=== PATIENT | female | born 1995 | race Two or more races ===

== ENCOUNTER 2024-05-17 19:59 | Emergency (ER) | payer OTHER ==
[~2024-05-17] VITALS: Ht 170.2 cm; Wt 69.8 kg
--- NOTE | 2024-05-17 20:34 | ED.PDOC ---
GI ASSESSMENT HPI Comments 29 year old female presents to the ED with a chief complaint of abdominal pain onset today (05/17/24). Patient states she woke up today experiencing RLQ pain radiating to RT flank, RT low back as well as nausea/vomiting, chills, fatigue. Patient was seen at [facility], told to come to ED to rule out possible appendicitis or ovarian cysts. Patient noticed hematuria with frequency 5 days ago, resolved on its own. Denies any PMHx as well as chest pain, shortness of breath, diarrhea, constipation, dizziness, blurry vision, headache. No other symptoms or modifying factors present at this time. Time Seen by MD: 20:17 Reviewed Notes: Medications, Allergies Allergies: Coded Allergies: Amoxicillin (Verified Allergy, Unknown, 05/17/24) Information Source: Patient, Relative (Mother) Mode of Arrival: Ambulatory Timing: Hours Duration: Since onset Prehospital treatment: None Quality: Aching Severity: Moderate Recent: None Recent Hx of: None Pain Location: RLQ Modifying Factors: Nothing Associated sign and symptoms: Nausea, Vomiting, Abdominal Pain Vital Signs Vital Signs Date Time Temp Pulse Resp B/P (MAP) Pulse Ox O2 Delivery O2 Flow Rate FiO2 05/17/24 21:24 99 17 100 Room Air* 0 21 05/17/24 21:23 98.2 142/86 (104) 98.2 Physical Exam General: Awake, alert and oriented. No acute distress. Skin: Skin in warm, dry and intact. Appropriate color for ethnicity. HEENT: The head is normocephalic and atraumatic. Conjunctivae are clear without exudates or hemorrhage. Sclera is non-icteric. EOM are intact. No signs of nystagmus. Eyelids are normal in appearance without swelling or lesions. Oral mucosa is pink and moist Neck: The neck is supple with normal range of motion. No JVD. Cardiac: Heart rate and rhythm are normal. No murmurs, gallops, or rubs are auscultated. Respiratory: No signs of respiratory distress. Lung sounds are clear in all lobes bilaterally without rales, ronchi, or wheezes. Abdominal: Abdomen is soft, right lower quadrant tenderness without distention. No CVA tenderness. Bowel sounds are present and normoactive in all four quadrants. Extremities: Upper and lower extremities are atraumatic in appearance without deformity or edema. Neurological: The patient is awake, alert and oriented to person, place, and time with normal speech. Speech is clear. There is no facial asymmetry. Psychiatric: Appropriate mood and affect. Good judgement and insight. No visual or auditory hallucinations. Review of Systems: REVIEW OF SYSTEMS: No fever, no chills, or fatigue HEENT: No sore throat, no earache, no congestion, no neck pain. Cardiac: No chest pain. No palpitations. Lungs: No shortness of breath, no cough. GI: Positive nausea, positive vomiting, no diarrhea, no constipation, no abdominal pain : Positive dysuria, positive frequency, positive urgency. No hematuria. Musculoskeletal: No joint pain , no joint swelling, no extremity edema. Skin: No rash, no itching. Neuro: No headache, no dizziness, no weakness Past Medical History PAST MEDICAL HISTORY: Thyroid Surgical History: Denies all surgeries ABLE SEAMAN History: No Pertinent ABLE SEAMAN History Family History Family History: Reviewed,noncontributory to illness, No family hx of Cancer, No family hx of DM, No family hx of Heart sven, No family hx of HTN, No family hx ofKidney sven, No family hx of Liver sven, No family hx of Lung sven, No family hx of Stroke Social History Smoker: Non-Smoker Alcohol: Denies ETOH Use Drugs: Denies Drug Use Lives In: Home Was a procedure done? Was a procedure done?: No GI differential Dx Differential Diagnosis: Other Other Differential Diagnosis Differential diagnoses considered include: Abdominal aortic aneurysm, AL, esophageal rupture, intestinal obstruction, mesenteric ischemia, perforated viscus or solid organ rupture, CHF with hepatomegaly, pneumonia, abscess, append icitis, biliary disease, diverticulitis, gastritis, gastroenteritis, hepatitis, hernia, inflammatory bowel disease, pancreatitis, peptic ulcer disease, urinary tract infection, ureteral colic, constipation, GERD, irritable syndrome, abdominal wall pain, nonspecific abdominal pain, herpes zoster. Also ruptured ectopic , ovarian torsion/cyst, tubo-ovarian abscess, PID, endo metriosis, mittleschmerz. X-Ray, Labs, Meds, VS Vital Signs Date Time Temp Pulse Resp B/P (MAP) Pulse Ox O2 Delivery O2 Flow Rate FiO2 05/17/24 21:24 99 17 100 Room Air* 0 21 05/17/24 21:23 98.2 99 19 142/86 (104) 100 98.2 05/17/24 20:56 99.3 92 16 140/80 (100) 97 Lab Test 05/17/24 20:41 05/17/24 20:25 Range/Units Urine Color Light-yellow Yellow Urine Clarity Clear Clear Urine pH 6.0 5.0-9.0 Urine Specific [place] 1.021 1.001-1.035 Urine Protein Negative Negative Urine Ketones Negative Negative Urine Blood 1+ H Negative /uL Urine Nitrite Negative Negative Urine Bilirubin Negative Negative Urine Urobilinogen Normal Negative mg/dL Urine Leukocyte Esterase Negative Negative /uL Urine RBC 17 0 - 4 /hpf Urine Microscopic WBC 3 0-5 /HPF Urine Squamous Epithelial Cells Few <5 /hpf Urine Bacteria None seen None Seen /hpf Urine Mucus Few None Seen Urine Glucose Normal Normal mg/dL Urine Test Negative Negative White Blood Count 14.2 H 4.4-10.8 10^3/uL Red Blood Count 4.70 4.0-5.20 10^6/uL Hemoglobin 14.2 12.2-16.2 g/dL Hematocrit 42.3 36.0-46.0 % Mean Corpuscular Volume 90.1 80.0-100.0 fL Mean Corpuscular Hemoglobin 30.1 28.0-32.0 pg Mean Corpuscular Hemoglobin Concent 33.5 32.0-36.0 g/dL Red Cell Distribution Width 12.8 11.8-14.3 % Platelet Count 245 140-450 10^3/uL Mean Platelet Volume 8.5 6.9-10.8 fL Neutrophils (%) (Auto) 82.9 H 37.0-80.0 % Lymphocytes (%) (Auto) 11.3 10.0-50.0 % Monocytes (%) (Auto) 5.5 0.0-12.0 % Eosinophils (%) (Auto) 0.1 0.0-7.0 % Basophils (%) (Auto) 0.2 0.0-2.0 % Neutrophils # (Auto) 11.8 H 1.6-8.6 10 ^3/uL Lymphocytes # (Auto) 1.6 0.4-5.4 10 ^3/uL Monocytes # (Auto) 0.8 0-1.3 10 ^3/uL Eosinophils # (Auto) 0 0-0.8 10 ^3/uL Basophils # (Auto) 0 0-0.2 10 ^3/uL Nucleated Red Blood Cells 0.0 % Sodium Level 138 136-145 mmol/L Potassium Level 4.1 3.5-5.1 mmol/L Chloride Level 105 98-107 mmol/L Carbon Dioxide Level 23 20-31 mmol/L Anion Gap 10 5-15 Blood Urea Nitrogen 12 9-23 mg/dL Creatinine 1.13 H 0.550-1.02 mg/dL Glomerular Filtration Rate Calc 68 >90 mL/min BUN/Creatinine Ratio 10.6 10.0-20.0 Serum Glucose 107 H 74-106 mg/dL Lactic Acid Level 0.8 0.4-2.0 mmol/L Calcium Level 10.0 8.7-10.4 mg/dL Total Bilirubin 0.7 0.2-1.0 mg/dL Aspartate Amino Transferase (AST) 19 13-40 U/L Alanine Aminotransferase (ALT) 11 7-40 U/L Alkaline Phosphatase 51 46-116 U/L Total Protein 7.4 5.7-8.2 g/dL Albumin 5.2 H 3.2-4.8 g/dL Lipase 46 12-53 U/L Current Medications Medications (Trade) Dose Ordered Sig/Pita Route Start Time Stop Time Status Last Admin Sodium Chloride 1,000 ml @ 1,000 mls/hr Q1H ONCE IV 05/17/24 20:30 05/17/24 21:29 DC 05/17/24 21:44 Ketorolac Tromethamine (Toradol Injection) 30 mg ONCE ONCE IV 05/17/24 20:30 05/17/24 20:31 DC 05/17/24 21:44 [place] [id number] Ph: [phone] DIAGNOSTIC IMAGING Diagnostic Imaging Report : [id number] Signed PATIENT: CYNTHIA MATOS ACCT: [id number] UNIT: [id number] : 1995 LOC: ER ROOM / BED: / AGE / SEX: 29 / F ADM STATUS: REG ER SERVICE 21 ORDERING PHYSICIAN: WYATT COREAS MD PROCEDURE(s): ABPLIV - CT AB PEL WITH IV CON ONLY REASON: RLQ pain ORDER NUMBER(s): [id number], ACCESSION NUMBER(s): [id number] CT OF THE ABDOMEN AND PELVIS WITH CONTRAST. HISTORY: RLQ pain COMPARISON: None TECHNIQUE: Helical axial CT images of the abdomen and pelvis were obtained with intravenous contrast. Multiplanar reformats. One or more of the following radiation dose reduction techniques were used for this examination: automated exposure control, adjustment of the mA and/or kV according to patient size, use of iterative reconstruction technique. FINDINGS: Imaged lung bases are grossly clear. Liver: No discrete hepatic lesions as visualized. Gallbladder and biliary system: No sizeable, radiopaque cholelithiasis or biliary ductal dilatation appreciated. Pancreas: Negative. Spleen: Negative. Adrenal Glands: Negative. Kidneys and collecting system: Asymmetric decreased perfusion of the right kidney secondary to edematous changes. Approximately 4 mm calculus seen in the proximal right ureter at the ureteropelvic junction. Additional small nonobstructing left lower pole nephrolithiasis. Retroperitoneum: No evidence of abdominal aortic aneurysm. Lymph nodes: No discretely enlarged lymph nodes identified. Bowel: No evidence of bowel obstruction. Normal caliber appendix. No free intraperitoneal air or fluid identified. Pelvis: No sizable bladder calculus. The uterus is retroflexed. Osseous structures: No destructive osseous lesions identified. IMPRESSION: Mild right hydronephrosis and edematous changes of the right kidney. Approximately 4 mm calculus in the proximal right ureter at the ureteropelvic junction. ATED BY: NAS DAY MD DICTATED DATE/TIME: 05/17/242150 SIGNED BY: NAS DAY MD SIGNED DATE/TIME: 05/17/242150 CC: Time of 1ST Reevaluation: 20:47 Reevaluation 1ST: Unchanged Patient Education/Counseling: Diagnosis, Treatment, Prognosis Family Education/Counseling: Diagnosis, Treatment, Prognosis Departure 1 Departure Time of Disposition: 22:01 Impression: Primary Impression: Right nephrolithiasis Additional Impressions: Hydronephrosis JERRI (acute kidney injury) Disposition: ADMITTED INPATIENT Condition: Stable Comments 29-year-old female who presented to the emergency department with right lower quadrant abdominal pain and vomiting. CT abdomen and pelvis shows 4 mm calculus in the proximal right ureter at the UPJ with associated hydronephrosis. CMP shows JERRI . Analgesic, IV fluids, antibiotics initiated in the emergency department. Patient admitted for Urology consultation, further treatment, evaluation and monitoring. Extensive evaluation was performed in attempt to identify or rule out: (See differential diagnosis section) The following tests were ordered, and results were reviewed by me and discussed with the patient: (See diagnostic results section) The following test were independently interpreted by me: N/A I reviewed the following notes from the pt's past medical encounters: N/A Additional information was gathered from interviewing the following independent historians: Patient's mother at bedside Discussion of management or test interpretation with external physician/other qualified health customer care agent: N/A Addressed an acute or chronic illness that poses a threat to life or bodily function: Acute kidney injury nephrolithiasis Decision regarding hospitalization or escalation of hospital level of care: Risk and benefits of admission for further treatment of patient's condition was considered. Due to patient's current clinical condition, high risk of decline and poor outcome if discharged and need for further inpatient management and monitoring, patient will be admitted to the hospital. Drug therapy requiring intensive monitoring for toxicity: N/A Parenteral controlled substances: N/A Decision regarding elective major surgery with identified patient or procedure risk factors: N/A Decision regarding emergency major surgery: N/A Decision not to resuscitate or to de-escalate care because of poor prognosis: N/A Diagnosis or treatment significantly limited by social determinants of health: N/A Critical Care Note Critical Care Time?: No Stability Stability form required: No I personally scribed for WYATT COREAS MD ([email or web address]) on 05/17/24 at 20:34. Electronically submitted by Mendy Friedman ([email or web address]). I personally scribed for WYATT COREAS MD ([email or web address]) on 05/17/24 at 21:59. Electronically submitted by Mendy Friedman ([email or web address]). WYATT COREAS MD May 17, 2024 20:34
[2024-05-17 20:50] LABS: Basophils # (auto) 0 10 ^3/uL (0-0.2); Basophils % (auto) 0.2 % (0.0-2.0); Eosinophils # (auto) 0 10 ^3/uL (0-0.8); Eosinophils % (auto) 0.1 % (0.0-7.0); Hematocrit 42.3 % (36.0-46.0); Hemoglobin 14.2 g/dL (12.2-16.2); Lymphocytes # (auto) 1.6 10 ^3/uL (0.4-5.4); Lymphocytes % (auto) 11.3 % (10.0-50.0); Mean Corpuscular Hemoglobin 30.1 pg (28.0-32.0); Mean Corpuscular Hgb Conc. 33.5 g/dL (32.0-36.0); Mean Corpuscular Volume 90.1 fL (80.0-100.0); Monocytes # (auto) 0.8 10 ^3/uL (0-1.3); Monocytes % (auto) 5.5 % (0.0-12.0); Neutrophils # (auto) 11.8 10 ^3/uL (1.6-8.6); Neutrophils % (auto) 82.9 % (37.0-80.0); Platelet Count (auto) 245 10^3/uL (140-450); Red Cell Distribution Width 12.8 % (11.8-14.3); White Blood Cell 14.2 10^3/uL (4.4-10.8)
[2024-05-17 20:52] LABS: Urine Bacteria None Seen /hpf (None Seen)
[2024-05-17 21:06] LABS: Alanine Aminotransferase 11 U/L (7-40); Alkaline Phosphatase 51 U/L (46-116); Anion Gap 10 (5-15); Aspartate Aminotransferase 19 U/L (13-40); BUN/Creatinine Ratio 10.6 (10.0-20.0); Bilirubin, Total 0.7 mg/dL (0.2-1.0); Blood Urea Nitrogen 12 mg/dL (9-23); Carbon Dioxide 23 mmol/L (20-31); Chloride 105 mmol/L (98-107); Lipase 46 U/L (12-53); Potassium 4.1 mmol/L (3.5-5.1); Sodium 138 mmol/L (136-145); Total Protein 7.4 g/dL (5.7-8.2)
[2024-05-17 21:24] VITALS: PULSE 99; RESP 17; O2SAT 100
[2024-05-17 21:41] LABS: Urine Blood 1+ /uL (Negative); Urine Clarity Clear (Clear); Urine Color Light-Yellow (Yellow); Urine Mucus FEW (None Seen); Urine Protein, UAD Negative (Negative); Urine Specific Gravity 1.021 (1.001-1.035); Urine Squamous Epithelial Cell FEW /hpf (<5); Urine Urobilinogen Normal (Negative); Urine WBC 3 /HPF (0-5)
[2024-05-17 21:44] LABS: Albumin 5.2 g/dL (3.2-4.8); Glucose 107 mg/dL (74-106)
[2024-05-17] MEDS: KETOROLAC TROMETH 30 MG/ML 1ML VIAL IV ONE (21:44)
[2024-05-17] MEDS: IOHEXOL 300 MG/ML 100ML BOTTLE IJ ONE (21:44)
[2024-05-17] MEDS: SODIUM CHLORIDE 0.9% 1,000 ML IV ONE (21:44)
--- NOTE | 2024-05-17 21:54 | DVH ---
CT OF THE ABDOMEN AND PELVIS WITH CONTRAST. HISTORY: RLQ pain COMPARISON: None TECHNIQUE: Helical axial CT images of the abdomen and pelvis were obtained with intravenous contrast. Multiplanar reformats. One or more of the following radiation dose reduction techniques were used fo r this examination: automated exposure control, adjustment of the mA and/or kV according to patient s ize, use of iterative reconstruction technique. FINDINGS: Imaged lung bases are grossly clear. Liver: No discrete hepatic lesions as visualized. Gallbladder and biliary system: No sizeable, radiopaque cholelithiasis or biliary ductal dilatation a ppreciated. Pancreas: Negative. Spleen: Negative. Adrenal Glands: Negative. Kidneys and collecting system: Asymmetric decreased perfusion of the right kidney secondary to edemat ous changes. Approximately 4 mm calculus seen in the proximal right ureter at the ureteropelvic junct ion. Additional small nonobstructing left lower pole nephrolithiasis. Retroperitoneum: No evidence of abdominal aortic aneurysm. Lymph nodes: No discretely enlarged lymph nodes identified. Bowel: No evidence of bowel obstruction. Normal caliber appendix. No free intraperitoneal air or flui d identified. Pelvis: No sizable bladder calculus. The uterus is retroflexed. Osseous structures: No destructive osseous lesions identified. IMPRESSION: Mild right hydronephrosis and edematous changes of the right kidney. Approximately 4 mm calculus in t he proximal right ureter at the ureteropelvic junction.
[2024-05-17] MEDS: cefTRIAXone 1GM/50ML D5W 50 ML IV ONE (22:44)
[2024-05-18] MEDS ORDERED: TAMS-35 PO (00:15)
[2024-05-18] MEDS ORDERED: ACET650T12 PO (00:15)
[2024-05-18] MEDS ORDERED: ZOFR4T PO (00:15)
[2024-05-18] MEDS ORDERED: IBUP-1454 PO (00:15)
[2024-05-18 00:17] VITALS: BP 127/87; PULSE 87; RESP 17; TEMP 98.1; O2SAT 100
== END 2024-05-18 00:23 | disposition home or self-care (01) ==
LOC: ER 19:59
DX: N13.2 Hydronephrosis with renal and ureteral calculous obstruction (principal); N17.9 Acute kidney failure, unspecified; Z88.0 Allergy status to penicillin
CPT/HCPCS: 36415; 74177; 80053; 81001; 81025; 83605; 83690; 85025; 96361; 96365; 96375; 99285; J0696; J1885; J7030; Q9967